=== PATIENT | male | born 1955 | race Asian ===

== ENCOUNTER 2017-01-17 11:44 | Emergency (ER) | payer OTHER ==
[~2017-01-17] VITALS: Ht 162.6 cm; Wt 71.5 kg
[~2017-01-17 11:44] MED LIST: HYDR-3498 PO; IBUP800T25 PO; LEVO500T72 PO; LOSA50TA6 PO; METO5TAB58 PO; PANT40TA3 PO; TAMS-14 PO; losartan PO; norco PO
[2017-01-17 11:51] VITALS: Ht 162.6 cm; Wt 71.5 kg
--- NOTE | 2017-01-17 12:06 | ERA ---
ER Documentation Chief Complaint Date/Time DATE: 01/17/17 TIME: 12:06 Chief Complaint LEFT FLANK PAIN X 2 DAYS HPI The patient is a 61-year-old male, presenting to the ER because of left flank pain for 2 days, no aggravating or relieving factor. He denies similar symptom previously. He denies fever, chills, neck pain, chest pain, nausea, vomiting. He denies diarrhea, constipation. He does not smoke, drink Past medical history: Hypertension Past surgical history: Splenic cystectomy ROS All systems reviewed and are negative except as per history of present illness. Medications Home Meds Active Scripts Hydrocodone/Acetaminophen ([place] 10-325 Tablet) 1 Each Tablet, 1 TAB PO Q6H Y for PAIN, #20 TAB Prov:STONE MAJANO MD 01/17/17 Hydrocodone/Acetaminophen ([place] 5-325 Tablet) 1 Each Tablet, 1 TAB PO Q6H Y for PAIN, #20 TAB Prov:STONE MAJANO MD 01/17/17 Ibuprofen* (Motrin*) 600 Mg Tab, 600 MG PO Q6, #30 TAB Prov:STONE MAJANO MD 01/17/17 Tamsulosin Hcl* (Flomax*) 0.4 Mg Cap.er.24h, 0.4 MG PO QPM, #30 CAP Prov:STONE MAJANO MD 03/01/16 Ibuprofen* (Motrin*) 800 Mg Tab, 800 MG PO Q6H Y for PAIN AND OR ELEVATED TEMP, #30 TAB Prov:STONE MAJANO MD 03/01/16 Reported Medications Losartan Potassium* (Losartan Potassium*) 50 Mg Tablet, 50 MG PO DAILY, TAB 03/01/16 Allergies Allergies: Coded Allergies: No Known Allergy (Unverified , 03/01/16) PMhx/Soc History of Surgery: Yes (appedectomy, hernia repair) Anesthesia Reaction: No Hx Alcohol Use: No Hx Substance Use: No Hx Tobacco Use: No Physical Exam Vitals Vital Signs Date Time Temp Pulse Resp B/P Pulse Ox O2 Delivery O2 Flow Rate FiO2 01/17/17 15:11 98.9 63 16 168/87 98 Room Air 01/17/17 11:51 98.0 80 18 160/86 97 Physical Exam Const: No acute distress. Head: Atraumatic. Eyes: Normal Conjunctiva. ENT: Normal External Ears, Nose and Mouth. Neck: Full range of motion. No meningismus. Resp: Clear to auscultation bilaterally. Cardio: Regular rate and rhythm. Abd: Soft, non distended, normal bowel sounds, minimal left flank tenderness Skin: No petechiae or rashes. Back: No midline or flank tenderness. Ext: No cyanosis, or edema. Neur: Awake and alert. No focal deficit Psych: Normal Mood and Affect. Result Diagram: 01/17/17 1210 01/17/17 1210 Results 24 hrs Laboratory Tests Test 01/17/17 12:10 01/17/17 12:58 White Blood Count 7.610^3/ul Red Blood Count 5.0810^6/ul Hemoglobin 14.6g/dl Hematocrit 44.3% Mean Corpuscular Volume 87.2fl Mean Corpuscular Hemoglobin 28.7pg Mean Corpuscular Hemoglobin Concent 33.0g/dl Red Cell Distribution Width 12.6% Platelet Count 66014^3/UL Mean Platelet Volume 10.2fl Neutrophils % 73.4% Lymphocytes % 17.6% Monocytes % 7.5% Eosinophils % 0.5% Basophils % 0.7% Nucleated Red Blood Cells % 0.0/100WBC Neutrophils # (Manual) 610^3/ul Lymphocytes # 1.310^3/ul Monocytes # 0.610^3/ul Eosinophils # 0.010^3/ul Basophils # 0.110^3/ul Nucleated Red Blood Cells # 0.010^3/ul Sodium Level 140mmol/L Potassium Level 3.4mmol/L Chloride Level 103mmol/L Carbon Dioxide Level 28mmol/L Anion Gap 12 Blood Urea Nitrogen 14mg/dl Creatinine 1.05mg/dl Glucose Level 93mg/dl Calcium Level 8.8mg/dl Total Bilirubin 0.5mg/dl Direct Bilirubin 0.00mg/dl Indirect Bilirubin 0.5mg/dl Aspartate Amino Transf (AST/SGOT) 28IU/L Alanine Aminotransferase (ALT/SGPT) 45IU/L Alkaline Phosphatase 48IU/L Total Protein 7.2g/dl Albumin 4.3g/dl Globulin 2.90g/dl Albumin/Globulin Ratio 1.48 Lipase 102U/L Bedside Urine pH (LAB) 7.0 Bedside Urine Protein (LAB) Negative Bedside Urine Glucose (UA) Negative Bedside Urine Ketones (LAB) Negative Bedside Urine Blood Negative Bedside Urine Nitrite (LAB) Negative Bedside Urine Leukocyte Esterase (L Negative Current Medications Medications (Trade) Dose Ordered Sig/Connie Route PRN Reason Start Time Stop Time Status Last Admin Dose Admin Morphine Sulfate (morphine) 2 mg ONCE ONCE IV 01/17/17 12:30 01/17/17 12:31 DC 01/17/17 12:36 Ondansetron HCl (Zofran Inj) 4 mg ONCE STAT IV 01/17/17 12:13 01/17/17 12:15 DC 01/17/17 12:36 IV Flush 10 ml 10 ml STK-MED ONCE .ROUTE 01/17/17 14:00 01/17/17 14:01 DC 01/17/17 14:05 Sodium Chloride (NS) 100 ml @ ud STK-MED ONCE .ROUTE 01/17/17 14:00 01/17/17 14:01 DC 01/17/17 14:06 Iohexol (Omnipaque 300mg/ ml) 150 ml STK-MED ONCE .ROUTE 01/17/17 14:00 01/17/17 14:01 DC 01/17/17 14:06 Procedures/[place] [id number] Radiology Main Line: [phone] DIAGNOSTIC IMAGING REPORT Patient: ARGELIA VILLASENOR : 1955 Age: 61 Sex: M MR #: [id number] DOS: 01/17/17 1211 Ordering MD: STONE MAJANO MD Location: E/R Room/Bed: PROCEDURE: CT Abdomen and Pelvis with contrast. CLINICAL INDICATION: Left flank pain TECHNIQUE: CT of the abdomen and pelvis was performed on a multi-detector scanner following the uncomplicated IV administration of 90 cc of Omnipaque 300. Coronal and sagittal images were reformatted from the axial data set. One or more of the following dose reduction techniques were used: automated exposure control, adjustment of the mA and/or kV according to patient size, use of iterative reconstruction technique. CTDI = 6.84 mGy. DLP = 392.81 mGy- cm. COMPARISON: CT, 03/01/2016 FINDINGS: CT abdomen: The lung bases are clear. The heart size is normal, without pericardial effusion. Liver demonstrates a small benign cyst. Gallbladder, biliary tree, pancreas, spleen, adrenal glands and kidneys are unremarkable. No urolithiasis or obstructive uropathy is identified. The stomach is grossly unremarkable. There is no abdominal aortic aneurysm or dissection. There is no retroperitoneal lymphadenopathy. The vanesa hepatis region is clear. CT pelvis: No bowel obstruction, free intraperitoneal air or abscess is identified. There is no diverticulosis, diverticulitis, colitis or appendicitis. Nonspecific mild amount of pelvic free fluid is present. No pelvic mass or lymphadenopathy is identified. Urinary bladder is grossly unremarkable. The surrounding osseous structures are remarkable for degenerative enthesopathy of the spine. No osteolytic or osteoblastic lesion is detected. IMPRESSION: 1. Nonspecific mild amount of pelvic free fluid is noted, of uncertain etiology or significance. 2. No mass, lymphadenopathy, or focal acute inflammatory process is identified. 3. There is no urolithiasis or obstructive uropathy. RPTAT: EE .Will Duron MD, MD Date Time Electronically viewed and signed by .Will Duron MD, MD on 01/17/2017 14: 17 .R/ CC: STONE MAJANO MD MEDICAL MAKING DECISION: The patient is a 61-year-old male, presenting with left -sided abdominal pain of unclear etiology. He was treated with morphine 2 mg IV for pain and Zofran 4 mg IV for nausea with good response The differential diagnoses considered include but are not limited to cholelithiasis, cholecystitis, cystitis, pancreatitis, hepatitis, gastritis, peptic ulcer disease, gastric ulcer, appendicitis, diverticulitis, cholangitis, choledocholithiasis, partial small bowel obstruction. Departure Diagnosis: Primary Impression: Abdominal pain Condition: Good Comments He was discharged with Motrin and [place] I discussed the findings with the patient. I advised the patient to follow-up with the primary physician in about 1-2 days, sooner if needed and return if any concern. STONE MAJANO MD Jan 17, 2017 12:06
[2017-01-17] MEDS ORDERED: ONDANSETRON 4 MG INJ IV STA (12:13)
[2017-01-17 12:28] LABS: BASOPHIL # 0.1 10^3/ul (0.0-0.1); BASOPHILS % 0.7 % (0.0-2.0); EOSINOPHILS % 0.5 % (0.0-7.0); HEMATOCRIT 44.3 % (42.0-52.0); HEMOGLOBIN 14.6 g/dl (14.0-18.0); LYMPHOCYTES # 1.3 10^3/ul (0.8-2.9); LYMPHOCYTES % 17.6 % (15.0-51.0); MEAN CORPUSCULAR HEMOGLOBIN 28.7 pg (29.0-33.0); MEAN CORPUSCULAR VOLUME 87.2 fl (82.0-101.0); MEAN PLATELET VOLUME 10.2 fl (7.4-10.4); MONOCYTE # 0.6 10^3/ul (0.3-0.9); MONOCYTES % 7.5 % (0.0-11.0); NEUTROPHILS % 73.4 % (39.0-77.0); PLATELET COUNT 196 10^3/UL (140-415); RED BLOOD COUNT 5.08 10^6/ul (4.70-6.10); RED CELL DISTRIBUTION WIDTH 12.6 % (11.5-14.5); WHITE BLOOD COUNT 7.6 10^3/ul (4.8-10.8)
[2017-01-17] MEDS ORDERED: morphine 2 MG INJ IV ONE (12:30)
[2017-01-17 12:48] LABS: ALBUMIN 4.3 g/dl (3.3-4.9); ALBUMIN/GLOBULIN RATIO 1.48; BILIRUBIN,INDIRECT 0.5 mg/dl (0-1.1); BILIRUBIN,TOTAL 0.5 mg/dl (0.2-1.3); CALCIUM 8.8 mg/dl (8.4-10.2); CREATININE 1.05 mg/dl (0.61-1.24); POTASSIUM 3.4 mmol/L (3.5-5.1); TOTAL PROTEIN 7.2 g/dl (6.1-8.1)
[2017-01-17 12:52] LABS: URINE BLOOD (Dip) POC Negative (NEGATIVE)
[2017-01-17] MEDS ORDERED: IOHEXOL 300MG/ML 150 ML BTL ONE (14:00)
[2017-01-17] MEDS ORDERED: SOD CHLORIDE 0.9% 100 ML ONE (14:00)
--- NOTE | 2017-01-17 14:17 | RADRPT ---
PROCEDURE: CT Abdomen and Pelvis with contrast. CLINICAL INDICATION: Left flank pain TECHNIQUE: CT of the abdomen and pelvis was performed on a multi-detector scanner following the un complicated IV administration of 90 cc of Omnipaque 300. Coronal and sagittal images were reformatt ed from the axial data set. One or more of the following dose reduction techniques were used: autom ated exposure control, adjustment of the mA and/or kV according to patient size, use of iterative r econstruction technique. CTDI = 6.84 mGy. DLP = 392.81 mGy-cm. COMPARISON: CT, 03/01/2016 FINDINGS: CT abdomen: The lung bases are clear. The heart size is normal, without pericardial effusion. Liver demonstrat es a small benign cyst. Gallbladder, biliary tree, pancreas, spleen, adrenal glands and kidneys are unremarkable. No urolithiasis or obstructive uropathy is identified. The stomach is grossly unrem arkable. There is no abdominal aortic aneurysm or dissection. There is no retroperitoneal lymphadenopathy. The vanesa hepatis region is clear. CT pelvis: No bowel obstruction, free intraperitoneal air or abscess is identified. There is no diverticulosis , diverticulitis, colitis or appendicitis. Nonspecific mild amount of pelvic free fluid is present. No pelvic mass or lymphadenopathy is identified. Urinary bladder is grossly unremarkable. The surrounding osseous structures are remarkable for degenerative enthesopathy of the spine. No os teolytic or osteoblastic lesion is detected. IMPRESSION: 1. Nonspecific mild amount of pelvic free fluid is noted, of uncertain etiology or significance. 2. No mass, lymphadenopathy, or focal acute inflammatory process is identified. 3. There is no urolithiasis or obstructive uropathy. RPTAT: EE .Will Duron MD, Date Time Electronically viewed and signed by .Will Duron MD, on 01/17/2017 14:17 .R/
[2017-01-17] MEDS ORDERED: HYDR-902 PO (14:46)
[2017-01-17] MEDS ORDERED: HYDR-906 PO (14:46)
[2017-01-17] MEDS ORDERED: IBUP-1542 PO (14:46)
[2017-01-17 15:11] VITALS: BP 168/87; PULSE 63; RESP 16; TEMP 98.9
== END 2017-01-17 15:13 | disposition home or self-care (01) ==
LOC: E/R 11:44
DX: R10.9 Unspecified abdominal pain (principal); I10 Essential (primary) hypertension
CPT/HCPCS: 36415; 74177; 80053; 81003; 83690; 85025; 96374; 96375; J2270; J2405; Q9967; Z7502; Z7610

== ENCOUNTER 2017-12-27 11:53 | Day surgery (SDC) | END 2017-12-27 14:39 | disposition home or self-care (01) ==